=== PATIENT | female | born 1955 | race Caucasian/White ===

== ENCOUNTER 2018-04-16 11:57 | Emergency (ER) | payer MEDICAID ==
[~2018-04-16] VITALS: Ht 162.6 cm; Wt 72.6 kg
[2018-04-16 12:02] VITALS: BP_SYST 145
[2018-04-16 13:06] VITALS: BP_SYST 142
== END 2018-04-16 13:06 | disposition home or self-care (01) ==
LOC: SED 11:57
DX: T24.211A Burn of second degree of right thigh, initial encounter (principal); T24.131A Burn of first degree of right lower leg, initial encounter; M54.30 Sciatica, unspecified side; R03.0 Elevated blood-pressure reading, without diagnosis of hypertension; X19.XXXA Contact with other heat and hot substances, initial encounter; Y93.89 Activity, other specified; Y92.89 Other specified places as the place of occurrence of the external cause; Y99.8 Other external cause status
CPT/HCPCS: 99283

== ENCOUNTER 2019-01-22 12:49 | Emergency (ER) | payer MEDICAID, OTHER ==
[~2019-01-22] VITALS: Ht 160 cm; Wt 64.4 kg
[2019-01-22 13:00] VITALS: BP_SYST 140
[2019-01-22 14:25] VITALS: BP_SYST 136
== END 2019-01-22 14:25 | disposition home or self-care (01) ==
LOC: SED 12:49
DX: K59.00 Constipation, unspecified (principal); R03.0 Elevated blood-pressure reading, without diagnosis of hypertension; E03.9 Hypothyroidism, unspecified; Z90.49 Acquired absence of other specified parts of digestive tract
CPT/HCPCS: 74018; 99283

== ENCOUNTER 2022-09-08 12:22 | Emergency (ER) | payer BC, OTHER ==
[~2022-09-08] VITALS: Ht 162.6 cm; Wt 68.0 kg
[2022-09-08 12:54] VITALS: BP_SYST 138
--- NOTE | 2022-09-08 13:02 | NUR ---
Patient triaged and placed in waiting room. VSS and patient appears in no acute distress at this time. Accompanied by , awaiting available bed, and Dr. Hernan ALLEN notified of need for MSE.
--- NOTE | 2022-09-08 14:08 | NUR ---
ER Dr. ZAVALETA at bedside examining patient.
[2022-09-08 15:33] LABS: BASOPHILS # (AUTO) 0.1 K/uL (0.0-0.2); BASOPHILS % (AUTO) 0.7 % (0.0-2.0); EOSINOPHILS # (AUTO) 0.1 K/uL (0.0-0.4); EOSINOPHILS % (AUTO) 1.6 % (0.0-4.0); HEMATOCRIT 45.4 % (36-48); HEMOGLOBIN 15.5 g/dL (12.0-16.0); LYMPHOCYTES # (AUTO) 2.5 K/uL (1.0-5.5); LYMPHOCYTES % (AUTO) 27.8 % (20.5-51.5); MEAN CORPUSCULAR HEMOGLOBIN 31 pg (27-31); MEAN CORPUSCULAR HGB CONC 34 % (32-36); MEAN CORPUSCULAR VOLUME 91 fL (79.0-98.0); MONOCYTES # (AUTO) 0.6 K/uL (0.0-1.0); NEUTROPHILS # (AUTO) 5.7 K/uL (1.8-7.7); NEUTROPHILS % (AUTO) 62.9 % (40.0-70.0); PLATELET COUNT (AUTO) 236 K/uL (130-430); RED BLOOD CELL COUNT(AUTO) 4.99 MIL/uL (4.2-6.2); RED CELL DISTRIBUTION WIDTH 14.1 % (9.0-15.0); WHITE BLOOD COUNT (AUTO) 9.1 K/uL (4.8-10.8)
[2022-09-08 15:42] LABS: CALCIUM 9.2 mg/dL (8.4-11.0); CREATININE 0.63 mg/dL (0.55-1.30)
[2022-09-08 15:50] LABS: ALBUMIN 3.5 g/dL (3.4-4.8); TOTAL BILIRUBIN 0.2 mg/dL (0.0-1.0)
[2022-09-08 16:16] LABS: BILIRUBIN,URINE NEGATIVE (NEGATIVE); CLARITY/URINE CLEAR (CLEAR); GLUCOSE,URINE NEGATIVE (NEGATIVE); KETONES,URINE NEGATIVE (NEGATIVE); LEUKOCYTE ESTERASE ,URINE NEGATIVE (NEGATIVE); NITRITE, URINE NEGATIVE (NEGATIVE); PH,URINE 5.5 (5.0-8.0); PROTEIN URINE NEGATIVE (NEGATIVE); UROBILINOGEN,URINE 0.2 (0.2-1.0)
[2022-09-08 16:17] LABS: BLOOD, URINE TRACE (NEGATIVE); COLOR,URINE STRAW (YELLOW)
[2022-09-08 16:24] LABS: BACTERIA,URINE None Seen /HPF (None Seen); MUCUS,URINE None Seen /LPF (None Seen); RBC,URINE 0-3 /HPF (0-3); WBC,URINE NONE SEEN /HPF (0-3)
[2022-09-08 16:32] LABS: INR 0.9 (0.8-1.2); PROTHROMBIN TIME 9.3 SECS (9.5-12.5)
--- NOTE | 2022-09-08 17:08 | NUR ---
ALL RESULT BACK EDP REASSESS PATIENT AND D/C HOME WITH INSTRUCTION.
== END 2022-09-08 17:12 | disposition home or self-care (01) ==
LOC: SED 12:22
DX: D37.5 Neoplasm of uncertain behavior of rectum (principal); R31.9 Hematuria, unspecified; R19.7 Diarrhea, unspecified; Z79.899 Other long term (current) drug therapy
CPT/HCPCS: 36415; 76376; 80053; 81000; 82150; 83690; 85025; 85610-TC; 85730-TC; 86140; 99284

== ENCOUNTER 2023-01-22 07:46 | Day surgery (SDC) | payer BC ==
[2023-01-19 11:13] LABS: BILIRUBIN,URINE 1+ (NEGATIVE); CLARITY/URINE CLEAR (CLEAR); COLOR,URINE YELLOW (YELLOW); GLUCOSE,URINE NEGATIVE (NEGATIVE); KETONES,URINE NEGATIVE (NEGATIVE); LEUKOCYTE ESTERASE ,URINE NEGATIVE (NEGATIVE); NITRITE, URINE NEGATIVE (NEGATIVE); PH,URINE 5.5 (5.0-8.0); PROTEIN URINE NEGATIVE (NEGATIVE); UROBILINOGEN,URINE 0.2 (0.2-1.0)
[2023-01-19 11:14] LABS: BLOOD, URINE TRACE (NEGATIVE)
[2023-01-19 11:26] LABS: BACTERIA,URINE FEW /HPF (None Seen); MUCUS,URINE 1+ /LPF (None Seen); RBC,URINE 0-3 /HPF (0-3); WBC,URINE 0-3 /HPF (0-3)
[~2023-01-22] VITALS: Ht 162.6 cm; Wt 65.8 kg
[~2023-01-22 07:46] MED LIST: CEFAZOLIN SOD 1 GM in D5W 50 ML IV ONE
[2023-01-22] MEDS ORDERED: NS IRRIG SOLN 1000 ML IR ONE (10:39)
[2023-01-22] MEDS ORDERED: KETOROLAC TROMETHAMINE 30 MG VIAL ONE (10:39)
[2023-01-22] MEDS ORDERED: METOCLOPRAMIDE HCL 10 MG/2 ML VIAL ONE (10:39)
[2023-01-22] MEDS ORDERED: BUPIVACAINE /EPINEPHRINE/PF 0.5% 30 ML VIAL INJ ONE (10:39)
[2023-01-22] MEDS ORDERED: DEXAMETHASONE SOD PHOSPHATE 4 MG/ML VIAL ONE (10:39)
[2023-01-22] MEDS ORDERED: ONDANSETRON HCL 4 MG/2 ML VIAL ONE (10:39)
[2023-01-22] MEDS ORDERED: WATER FOR IRRIGATION,STERILE 1,000 ML IRRIG.SOLN IR ONE (10:39)
[2023-01-22] MEDS ORDERED: DESFLURANE 15 MIN GAS INH ONE (10:39)
[2023-01-22] MEDS ORDERED: fentaNYL CITRATE/PF 100 MCG/2 ML AMP ONE (10:39)
[2023-01-22] MEDS ORDERED: PROPOFOL 200MG/ 20ML VIAL (DIPRIVAN) IV ONE (10:39)
[2023-01-22] MEDS ORDERED: LR 1,000 ML IV.SOLN IV ONE (10:39)
[2023-01-22] MEDS ORDERED: HEPARIN SODIUM,PORCINE/NS/PF 1,000 UNITS/500 ML BAG IV ONE (10:39)
[2023-01-22] MEDS ORDERED: HYDROcodone/ACETAMIN 5-325 MG TAB (NORCO/ VICODIN) PO PRN (11:45)
[2023-01-22] MEDS ORDERED: D5/0.45 NS 1,000 ML IV SCH (11:45)
[2023-01-22 15:10] VITALS: BP_SYST 135
== END 2023-01-22 14:22 | disposition home or self-care (01) ==
LOC: SDS 07:46 → SMU 07:47 → SDS 14:22
PROVIDERS: ATTEND Colon & Rectal Surgery
DX: C20 Malignant neoplasm of rectum (principal); E03.9 Hypothyroidism, unspecified; Z79.899 Other long term (current) drug therapy
CPT/HCPCS: 81000; 87081; 36556; 71045; 77001; J3490; J0690; J1100; J1644; J1885; J2765; J2405; J2704; J3010; J7060; J7120; C1788; 76000